=== PATIENT | female | born 1930 | race Caucasian/White ===

== ENCOUNTER 2016-06-06 13:19 | Inpatient (IN) | payer MEDICARE, OTHER ==
[~2016-06-06] VITALS: Ht 152.4 cm; Wt 88.1 kg
[2016-06-06 13:19] VITALS: BP 102/41; PULSE 34; RESP 14; O2SAT 100
[~2016-06-06 13:19] MED LIST: 0.9% Sodium Chloride 1,000 ML IV ONE; ACET500T95 PO; ADV250INH INH; ALBU18HF IH; ASC500 PO; CALC-686 PO; CARV12.5 PO; CHOL10002 PO; CIPR250T45 PO; CITA20TA PO; DOXY50CA2 PO; FURO-3 PO; GABA300C PO; METROGEL 1% TP; MULT-64 PO; MYCL PO; NITR1PAT64 TD; OMEP20TA86 PO; TIOT18CA IH; TRAVOS OD; VIB100 PO; ZOC20 PO; [UNRECOGNIZED DRUG - OTHER] PO
--- NOTE | 2016-06-06 13:21 | ED.REPORT ---
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 This morning the patient developed neck pain that radiated into both of her shoulders. She also noticed shortness of breath. She told medics that she had an episode of chest discomfort yesterday. Over the last few days the patient has noticed a cough and runny nose, these have improved. Medics called prior to arrival. They saw LBBB on EKG and wanted to know if this was chronic. While on the phone with me they said the patient went into a third degree AV block. Nursing Notes Stated Complaint: BRADYCARDIA Chief Complaint: Dysrhythmia/Cardiac Nursing Notes Reviewed: Yes Allergies: Coded Allergies: morphine (Verified Allergy, Intermediate, 06/06/16) pt becomes itchy and uncomfortable Penicillins (Verified Allergy, Unknown, 06/06/16) Sulfa (Sulfonamide Antibiotics) (Verified Allergy, Unknown, 06/06/16) codeine (Verified Allergy, Unknown, 06/06/16) meperidine (Verified Allergy, Unknown, 06/06/16) pt states that she becomes nauseous and vommits and her BP becomes labile with demerol aspirin (Verified Adverse Reaction, Unknown, has brain malformation, advised not to take ASA, 06/06/16) Scheduled ([metrOGEL 1%]) TP DAILY Apply by topical route every day to affected area(s) and rub in gently and completely Acetaminophen (Pain & Fever) 500 Mg Tablet 1,000 MG PO BIDP Ascorbic Acid-Expunged Drug, Do Not Renew! (Vitamin C-Expunged Drug, Do Not Renew!) 500 Mg Tablet 1,000 MG PO BID Bimatoprost (Lumigan) 45 Drop/2.5 Ml Ophsoln 45 DROP RIGHT_EYE HS Calcium Carbonate (Calcium) 600 Mg Tablet 600 MG PO BID Carvedilol-Expunged Drug, Do Not Renew! (Carvedilol-Expunged Drug, Do Not Renew! ) 12.5 Mg Tablet 12.5 MG PO BID TAKE WITH FOOD Citalopram-Expunged Drug, Do Not Renew! (Citalopram-Expunged Drug, Do Not Renew! ) 20 Mg Tablet 20 MG PO DAILY Furosemide-Expunged Drug, Do Not Renew! (Furosemide-Expunged Drug, Do Not Renew! ) 40 Mg Tablet 20 MG PO DAILY Gabapentin-Expunged Drug, Do Not Renew! (Neurontin-Expunged Drug, Do Not Renew! ) 300 Mg Capsule 300 MG PO QAM Gabapentin-Expunged Drug, Do Not Renew! (Neurontin-Expunged Drug, Do Not Renew! ) 300 Mg Capsule 600 MG PO QPM Magnesium Oxide (Magnesium) 500 Mg Capsule 500 MG PO HS Multivitamins-Expunged Drug, Do Not Renew! (Multivitamins-Expunged Drug, Do Not Renew!) 1 Each Tab.chew 1 EACH PO DAILYWM Nitroglycerin-Expunged Drug, Do Not Renew! (Nitroglycerin-Expunged Drug, Do Not Renew!) 1 Patch .24 H Patch.td24 0.2 MG TD DAILY REMOVE AT NIGHT FOR 10-12 HOURS Nystatin (Mycostatin Susp) 100,000 Unit/Ml Susp 500,000 UNIT PO QID Omeprazole-Expunged Drug, Do Not Renew! (Omeprazole-Expunged Drug, Do Not Renew! ) 20 Mg Tablet.dr 20 MG PO DAILYAC Simvastatin-Expunged Drug, Choose New Med! (Simvastatin-Expunged Drug, Choose New Med!) 20 Mg Tablet 20 MG PO HS Tiotropium Br-Expunged Drug, Do Not Renew! (Spiriva-Expunged Drug, Do Not Renew! ) 18 Mcg/Puff Pack 1 PUFF IH DAILY Vit C/Stefany AC/Lut/Copper/Znox (Preservision Lutein Softgel) 1 Each Capsule 1 EACH PO BID Scheduled PRN Albuterol Neb Soln (Albuterol Neb Soln) 2.5 Mg/3 Ml Vial.neb 2.5 MG INHALATION Q4H PRN PRN For Shortness of Breath Albuterol-Expunged Drug, Do Not Renew! (Albuterol-Expunged Drug, Do Not Renew!) 200 Puff/18 Gm Hfa.aer.ad 2 PUFF IH Q4-6HP PRN PRN General Time Seen by MD: 13:17 Chief Complaint Other (neck pain) Hx Obtained From: Patient, EMS Arrived By: Ambulance Sudden in Onset?: Yes Onset Occurred: 1 - 4 hours ago Symptom Duration: Since onset Location: : Neck Quality: Painful Radiation: : Shoulder left: Shoulder right Migration/Movement: Reports: None Severity: Current: Moderate Severity: Maximum: Severe Recent Healthcare: No recent hospitalization, Recent doctor visit Similar Sx Previous: No Past Medical History Past Medical History 1. Unstable angina 2. Congestive heart failure 3. History of UTIs 4. Paroxysmal atrial fibrillation 5. Cavernous hemangioma in the left middle cerebellar peduncle by MRI on July 16, 2010. 6. Asthma 7. History of complex partial seizures. 8. Diet controlled diabetes mellitus type 2. 9. Obstructive sleep apnea. 10. Chronic depression and anxiety 11. Hypertension 12. Glaucoma Past Surgical History Hysterectomy Cholecystectomy Total knee replacement. Family History Noncontributory Smoking History Never Smoker Social History Alcohol Use: Denies alcohol use Drug Use: Denies drug use Other Social History: Good social support, Lives alone, , Local resident Ambulatory Status Independent Review of Systems Respiratory: Reports: Non-productive cough, Shortness of breath Cardiovascular: Reports: Chest pain Musculoskeletal: Reports: Joint pain, Neck pain Complete sys rev & neg: except as marked. Allergy / Immune: Reports: Rhinorrhea Physical Exam Initial Vital Signs Vital Signs (First) Date Time Temp Pulse Resp B/P Pulse Ox O2 Delivery O2 Flow Rate FiO2 06/06/16 13:19 36.5 34 14 102/41 100 Nasal Cannula 6 Initial VS: Reviewed Head / Eyes: Atraumatic, Normocephalic, PERRL ENT: Mucous membranes moist, Conjunctiva normal, No scleral icterus Neck: Supple, Non-tender, Full range of motion Lymphatic: No lymphadenopathy Extremities: Vascular intact, Neuro intact, No swelling, No tenderness Skin: Warm, Dry, No cyanosis Neurologic: Alert, Oriented, Nonfocal Psychiatric: Mood/affect normal, Behavior normal, Normal thought content General/Constitutional: Awake, Alert, No acute distress, Well appearing, Cooperative Respiratory / Chest: Atraumatic, Breath sounds NL, Breath sounds = bilat, No respiratory distress, No rales, No rhonchi, No wheezing, No stridor, No chest tenderness Cardiovascular: Regular rhythm, Heart sounds NL, No murmurs, No rubs, Peripheral circulation NL, Pulses = bilaterally, No gross BP differential Heart Rate / Rhythm: Positive: Bradycardia Abdomen: Atraumatic, Soft, Non-tender, McBurney's non-tender, No guarding, No rebound, BS normoactive, No distention, No hernia, No palpable mass Interpretation & Diagnostics Lab Results Interpretation Result Diagram: 06/06/16 1326 06/06/16 1326 Test 06/06/16 13:26 White Blood Count 6.1th/mm3 (3.8-10.1) Red Blood Count 4.81mil/mm3 (3.90-5.20) Hemoglobin 14.7g/dL (12.0-15.6) Hematocrit 45.3% (35.0-46.0) Mean Corpuscular Volume 94.2fL (81-100) Mean Corpuscular Hemoglobin 30.6pg (27.0-35.0) Mean Corpuscular Hemoglobin Concent 32.5% (32.0-37.0) Red Cell Distribution Width 14.1% (12.3-15.4) Platelet Count 147bil/L (150-400) Neutrophils (%) (Auto) 50.9% (40-74) Lymphocytes (%) (Auto) 31.0% (14-46) Monocytes (%) (Auto) 15.4% (4-12) Eosinophils (%) (Auto) 2.0% (0-5) Basophils (%) (Auto) 0.5% (0-3) Prothrombin Time 11.4sec (8.1-12.5) Prothromb Time International Ratio 1.06ratio Activated Partial Thromboplast Time 28.0sec (22.8-33.0) Sodium Level 139mEq/L (134-144) Potassium Level 4.9mEq/L (3.5-5.2) Chloride Level 99mEq/L (97-108) Carbon Dioxide Level 25mmol/L (18-29) Blood Urea Nitrogen 22mg/dL (8-27) Creatinine 1.05mg/dL (0.57-1.00) Estimat Glomerular Filtration Rate 71mL/min (>59) Glucose Level 104mg/dL (60-99) Calcium Level 9.0mg/dL (8.5-10.1) Magnesium Level 2.5mg/dL (1.6-2.6) Total Bilirubin 0.6mg/dL (0.0-1.2) Aspartate Amino Transf (AST/SGOT) 31U/L (0-50) Alanine Aminotransferase (ALT/SGPT) 18U/L (0-32) Alkaline Phosphatase 64U/L (25-165) Total Creatine Kinase 48U/L (21-215) Creatine Kinase MB < 1.0ng/mL (0.0-5.3) Creatine Kinase MB % % (0.0-5.0) Troponin T < 0.010ug/L (0.0-0.011) Total Protein 7.1g/dL (6.4-8.4) Albumin 3.8g/dL (3.4-5.0) ECG Interpretation ECG Interpretation: Sinus bradycardia with a rate of 34 2:1 Mobitz Time: 13:31 Interpreted by: ED physician ECG Interpretation: 3rd degree block with a rate of 31 Time: 14:30 Interpreted by: ED physician X-Ray Chest Interpretation Chest Xray Interpretation: IMPRESSION: Mild cardiomegaly as before. No acute cardiopulmonary findings. Dictated by: Karly Owen M.D. on 06/06/2016 at 14:06 Interpretation / Wet Read by: Interpret - Radiologist Re-Eval/Medical Decision Med Decision/Clinical Course This patient is in intermittent Mobitz 2 and third-degree heart block. No obvious reversible cause is found. 5 mg of IV glucagon was given due to reported history of beta lizzie use and possibility of beta lizzie toxicity. Patient encounter began prior to arrival to the emergency department via telephone conversation with paramedics in order to look at this patient's past medical history and prior EKGs in order to best determine etiology of her symptoms. A stat medical team was called. Laboratory studies, vital signs, pacer pads, and IV fluids were initiated immediately. Patient required my immediate and undivided attention upon arrival. Luckily she has remained hemodynamically stable and asymptomatic at rest. Cardiology was emergently consulted and comes to the bedside in the ER. Patient will be admitted to intensive care. Source of Hx: Old records, EMS Summary of Info: ECHOCARDIOGRAM Interpretation Summary Sinus bradycardia; heart rate is 55-65 bpm. Normal LV size, wall thickness; there is global hypokinesis. EF is 35-40%. EPSS is 1.4 cm consistent with cardiomyopathy. There is mild-moderate aortic regurgitation in the setting of mildly dilated annulus and normal leaflets. Otherwise there are no significant valvular abnormalities. Normal chamber sizes. Mildly dilated ascending aorta (4.4 cm). Compared to prior study no changes have occurred. Reading Physician:11:30 AM Time of Eval: 13:50 Re-Evaluation/Progress Note: Rechecked the patient. Discussed plan for the in store banker to come and evaluate the patient. The patient is okay to have the electrical pads in place and transcutaneous pacing if needed. Time of Eval: 14:24 Re-Evaluation/Progress Note: Dr. Salcedo is here to evaluate the patient. Consultation #1: Referral / Consult Name: Judi Salcedo MD Consulted With: Cardiology Call Returned at: 13:48 Fly Fishing Guide: Will see patient, Agrees with eval, Agrees with plan Consultation #2: Referral / Consult Name: Kevin Brar MD Consulted With: Hospitalist Requested Call at: 14:12 Call Returned at: 14:46 Fly Fishing Guide: Will see patient, Agrees with eval, Agrees with plan, Accepts admit Counseled Regarding: Diagnosis, Lab results, Need for admission Discharge & Departure Primary Impression: Heart block AV third degree Additional Impression: Mobitz type II block Disposition: ADMITTED TO HOSPITAL Discharge Condition All VS Reviewed: Yes Condition: Stable Referrals: Samantha Oshea (PCP) Crit Care Except Billable Proc Time Spent: 30-74 minutes Services Performed: Patient management by me, Time spent at bedside, Reviewing test results, Reviewing imaging, Discussing patient care, Documentation in record, Time with fam/surrogate Critical Care Notes: See MDM Scribe Attestation Portions of this note were transcribed by Vijaya Delong. I, Dr. Jaime personally performed the history, physical exam and medical decision-making; I reviewed and confirmed the accuracy of the information in the transcribed note. Signed by: Emili Farfan, 06/06/2016 and [id number]. copies to: Samantha Oshea Timothy S DO Jun 06, 2016 13:21 Vijaya Delong Jun 06, 2016 13:31
[2016-06-06 13:30] LABS: BASOPHILS % (AUTO) 0.5 % (0-3); MONOCYTES % (AUTO) 15.4 % (4-12); Mean Corpuscular Hemoglobin 30.6 pg (27.0-35.0); Mean Corpuscular Volume 94.2 fL (81-100); NEUTROPHILS % (AUTO) 50.9 % (40-74); Platelet Count 147 bil/L (150-400)
[2016-06-06] MEDS ORDERED: Glucagon 1 mg/mL Inj IV ONE (13:35)
[2016-06-06 13:47] LABS: INR 1.06 ratio
[2016-06-06] MEDS ORDERED: GLUCAGON IV ONE (13:50)
[2016-06-06 13:51] VITALS: BP 148/42; PULSE 33; RESP 16; O2SAT 100
[2016-06-06 14:03] LABS: TROPONIN T < 0.010 ug/L (0.0-0.011)
[2016-06-06 14:07] LABS: Creatine Kinase 48 U/L (21-215); Magnesium 2.5 mg/dL (1.6-2.6)
--- NOTE | 2016-06-06 14:08 | DRSVH ---
PROCEDURE: X-RAY CHEST ONE VIEW, PORTABLE ([id number]) INDICATIONS: shoulder discomfort TECHNIQUE: One view of the chest was acquired. COMPARISON: [facility], , CHEST 1VW (PORTABLE), 07/16/2013, 11:14. FINDINGS: Surgical changes and devices: None. Lungs and pleura: No pleural effusions or pneumothorax. Lungs are clear. Mediastinum: Mediastinal contours appear normal. Heart size is mildly enlarged. Bones and chest wall: No suspicious bony lesions. Overlying soft tissues appear unremarkable. IMPRESSION: Mild cardiomegaly as before. No acute cardiopulmonary findings. Dictated by: Karly Owen M.D. on 06/06/2016 at 14:06 Approved by: Karly Owen M.D. on 06/06/2016 at 14:07
[2016-06-06] MEDS ORDERED: BIMA2.5D5 RIGHT_EYE (14:10)
[2016-06-06] MEDS ORDERED: CALC600T12 PO (14:10)
[2016-06-06] MEDS ORDERED: ALBU2.5V4 INHALATION (14:10)
[2016-06-06] MEDS ORDERED: MAGN500C4 PO (14:10)
[2016-06-06] MEDS ORDERED: VIT1CAPS27 PO (14:10)
[2016-06-06] MEDS ORDERED: Alum-Mag Hydrox-Simeth 30 mL Suspension PO PRN ×3 (14:50→16:45)
--- NOTE | 2016-06-06 15:10 | PCM.HPMED ---
Subjective Date of Service Jun 06, 2016 Primary Provider: Admitting Physician: Primary Care Physician: Samantha Oshea Attending Physician: Chief Complaint: malaise and neck pain HISTORY was OBTAINED FROM PATIENT-daughters / [facility] NOTES History of present illness 86-year-old female with malaise intermittently with shoulder/neck pain typically in the morning x few weeks typically associated w/ intermittent low HR per daughter, seen by pulmonolgist and PCP who likely did not capture the low HR, but stopped advair for malaise. 3 days ago runny nose w / URI symptoms. EMS called for ongoing shoulder/neck pain/malaise and noted her to be in third-degree AV block. pending director [employer] appointment in [place] on thursday -daughters made this appt due to malaise. malaise/shoulder/ neck pain get better as the day progresses/she eats and HR is no longer low. She is not on ACEI/ARB, w/ sCHF. She takes coreg and nitro patch w/ minimal CAD on last angio per notes here approx 2008. In the ER 1 L NS, glucagon 5, HR 30-40s, mobitzII/3rd degree heart block, known LBBB. Review of Systems - none of the following - F/C / wt change/ REAL / sob / cough / cp / acid reflux / n/v / bleeding/bruising / leg swelling / change in voiding / thrush / rash ambulates w/ cane due to recent URI, otherwise ambulates w/o cane FAMILY HX atrial fibrillation SOCIAL HX former smoker occasional EtOH MEDICATIONS Coreg metrOGEL 1%]) TP DAILY Apply by topical route every day to affected area(s) and rub in gently and completely Acetaminophen (Pain & Fever) 500 Mg Tablet 1,000 MG PO BIDP Ascorbic Acid-Expunged Drug, Do Not Renew! (Vitamin C-Expunged Drug, Do Not Renew!) 500 Mg Tablet 1,000 MG PO BID Bimatoprost (Lumigan) 45 Drop/2.5 Ml Ophsoln 45 DROP RIGHT_EYE HS Calcium Carbonate (Calcium) 600 Mg Tablet 600 MG PO BID Carvedilol-Expunged Drug, Do Not Renew! (Carvedilol-Expunged Drug, Do Not Renew! ) 12.5 Mg Tablet 12.5 MG PO BID TAKE WITH FOOD Citalopram-Expunged Drug, Do Not Renew! (Citalopram-Expunged Drug, Do Not Renew! ) 20 Mg Tablet 20 MG PO DAILY Furosemide-Expunged Drug, Do Not Renew! (Furosemide-Expunged Drug, Do Not Renew! ) 40 Mg Tablet 20 MG PO DAILY Gabapentin-Expunged Drug, Do Not Renew! (Neurontin-Expunged Drug, Do Not Renew! ) 300 Mg Capsule 300 MG PO QAM Gabapentin-Expunged Drug, Do Not Renew! (Neurontin-Expunged Drug, Do Not Renew! ) 300 Mg Capsule 600 MG PO QPM Magnesium Oxide (Magnesium) 500 Mg Capsule 500 MG PO HS Multivitamins-Expunged Drug, Do Not Renew! (Multivitamins-Expunged Drug, Do Not Renew!) 1 Each Tab.chew 1 EACH PO DAILYWM Nitroglycerin-Expunged Drug, Do Not Renew! (Nitroglycerin-Expunged Drug, Do Not Renew!) 1 Patch .24 H Patch.td24 0.2 MG TD DAILY REMOVE AT NIGHT FOR 10-12 HOURS Nystatin (Mycostatin Susp) 100,000 Unit/Ml Susp 500,000 UNIT PO QID - PRN Omeprazole-Expunged Drug, Do Not Renew! (Omeprazole-Expunged Drug, Do Not Renew! ) 20 Mg Tablet.dr 20 MG PO DAILYAC Simvastatin-Expunged Drug, Choose New Med! (Simvastatin-Expunged Drug, Choose New Med!) 20 Mg Tablet 20 MG PO HS Tiotropium Br-Expunged Drug, Do Not Renew! (Spiriva-Expunged Drug, Do Not Renew! ) 18 Mcg/Puff Pack 1 PUFF IH DAILY Vit C/Stefany AC/Lut/Copper/Znox (Preservision Lutein Softgel) 1 Each Capsule 1 EACH PO BID Scheduled PRN Albuterol Neb Soln (Albuterol Neb Soln) 2.5 Mg/3 Ml Vial.neb 2.5 MG INHALATION Q4H PRN PRN For Shortness of Breath Albuterol-Expunged Drug, Do Not Renew! (Albuterol-Expunged Drug, Do Not Renew!) 200 Puff/18 Gm Hfa.aer.ad 2 PUFF IH Q4-6HP PRN PRN Past Medical/Surgical HX Intracranial aneurysm/ cavernous hemangioma middle cerebellar peduncle MRI - contraindication for anticoagulation/asa/plavix distal LAD TX 2011 / sCHF 2013/hypertension/unstable angina Blood clot COPD/asthma GERD Diabetes diet controlled Recurrent UTIs Paroxysmal atrial fibrillation LBBB History of complex partial seizures. Diet controlled diabetes mellitus type 2. Obstructive sleep apnea. Does not use CPAP Chronic depression and anxiety Glaucoma Peritoneal dialysis is listed in the history section of I med Arthritis Diverticulitis Hysterectomy/cholecystectomy/knee replacement Allergies Coded Allergies: morphine (Verified Allergy, Intermediate, 06/06/16) pt becomes itchy and uncomfortable Penicillins (Verified Allergy, Unknown, 06/06/16) Sulfa (Sulfonamide Antibiotics) (Verified Allergy, Unknown, 06/06/16) codeine (Verified Allergy, Unknown, 06/06/16) meperidine (Verified Allergy, Unknown, 06/06/16) pt states that she becomes nauseous and vommits and her BP becomes labile with demerol aspirin (Verified Adverse Reaction, Unknown, has brain malformation, advised not to take ASA, 06/06/16) PMH Social History Hx Alcohol Use: Yes ("occasional") Hx Substance Use: No Hx Tobacco Use: Yes (quit 30 years ago. smoked for 20 years) Smoking Status: Never Smoker Exam Vital Signs Vital Sign - Last Date Time Temp Pulse Resp B/P Pulse Ox O2 Delivery O2 Flow Rate FiO2 06/06/16 13:51 33 16 148/42 100 Room Air 06/06/16 13:19 36.5 6 Lab and Diagnostics Labs Exam on admission 2L NC NAD A and O x 3 mood affect WNL, poor historian NC/AT no icterus no injected eyes EOMI PERRL /no pharyngeal lesions/ no oral lesions / hearing intact Supple neck CTAB equal chest rise / no accessory muscle use / speaks in full sentences / no rrw RRR S1 S2 / no mrg / 2+ radial pulses Soft nt nd + BS no hepatosplenomegaly No edema no cyanosis no ecchymosis of lower extremities No rash / no jaundice ROSALES CNII-XII grossly intact symmetrical No dysmetria of bilateral upper and lower limbs Strength grossly intact of bilateral upper and lower limbs Sensation grossly symmetrical of bilateral upper and lower limbs symmetrical facies EKG P waves regular, QRS 30 40s, PVCs alternates with SR Trop 0.01 BNP 2206 Creatinine 1.05 TSH 3.1 UA pending LFT normal INR 1.06 Imaging PROCEDURE: X-RAY CHEST ONE VIEW, PORTABLE ([id number]) INDICATIONS: shoulder discomfort TECHNIQUE: One view of the chest was acquired. COMPARISON: [facility], CR, CHEST 1VW (PORTABLE), 07/16/2013, 11:14. FINDINGS: Surgical changes and devices: None. Lungs and pleura: No pleural effusions or pneumothorax. Lungs are clear. Mediastinum: Mediastinal contours appear normal. Heart size is mildly enlarged. Bones and chest wall: No suspicious bony lesions. Overlying soft tissues appear unremarkable. IMPRESSION: Mild cardiomegaly as before. No acute cardiopulmonary findings. Echo 05/2016 Sinus bradycardia; heart rate is 55-65 bpm. Normal LV size, wall thickness; there is global hypokinesis. EF is 35-40%. EPSS is 1.4 cm consistent with cardiomyopathy. There is mild-moderate aortic regurgitation in the setting of mildly dilated annulus and normal leaflets. Otherwise there are no significant valvular abnormalities. Normal chamber sizes. Mildly dilated ascending aorta (4.4 cm). Compared to prior study no changes have occurred. Result Diagram: 06/06/16 1326 06/06/16 1326 Assessment & Plan Active issues and reason for admission 86 y f w/ neck/shoulder ache/malaise attributed to 3rd degree/mobitz2 block with history of distal LAD TX 2011 / sCHF since 2013 mild-mod AR EF 35-40% echo 2016 / hypertension / unstable angina --dc coreg. prn enalpralit. start enalapril trial tomorrow. continue home nitro/ lasix/K/Mg. monitor in ICU, re-eval by thursday for pacer consideration per Dr. Salcedo. --serial trop I --electrolytes monitor --normal TSH/elevated BNP - no comparison lung crackles/URI --wean O2 --pending respiratory PCR/sputum cx --scheduled albuterol, incentive spirometry --prn CPAP/BIPAP Malaise prior diverticulitis/UTIs, current diarrhea --pending stool PCR Chronic issues known prior to admission, present on admission Blood clot COPD/asthma GERD Recurrent UTIs Paroxysmal atrial fibrillation LBBB History of complex partial seizures. Diet controlled diabetes mellitus type 2. Obstructive sleep apnea. Does not use CPAP Chronic depression and anxiety Glaucoma Arthritis --resume home meds except vitamins/coreg Diet DM/cardiac/SSI DVT prophylaxis lscd ambulate, Intracranial aneurysm/cavernous hemangioma cerebellar penducle - contraindication for anticoagulation/asa/plavix Code DNR DNI Disposition inpt, f/u w/ her [place] director [employer] on thursday if discharged prior to then Assessment and plan were discussed with patient family. Kevin Brar MD Jun 06, 2016 15:10
[2016-06-06 15:17] VITALS: BP 154/41; PULSE 37; RESP 15; O2SAT 100
[2016-06-06] MEDS ORDERED: NITR1PAT59 TRANSDERM (15:37)
[2016-06-06] MEDS ORDERED: MULT1CAP33 PO (15:37)
[2016-06-06] MEDS ORDERED: GABA-502 PO ×2 (15:37)
[2016-06-06] MEDS ORDERED: ACET-171 PO (15:37)
[2016-06-06] MEDS ORDERED: CITA20TA11 PO (15:37)
[2016-06-06] MEDS ORDERED: TIOT18CA3 IH (15:37)
[2016-06-06] MEDS ORDERED: ALBU8.5H2 INHALATION (15:37)
[2016-06-06] MEDS ORDERED: CARV12.52 PO (15:37)
[2016-06-06] MEDS ORDERED: SIMV20TA4 PO (15:37)
[2016-06-06] MEDS ORDERED: NYST1000 PO (15:37)
[2016-06-06] MEDS ORDERED: ASCO100089 PO (15:37)
[2016-06-06] MEDS ORDERED: FURO40TA4 PO (15:37)
[2016-06-06] MEDS ORDERED: OMEP20CA11 PO (15:37)
[2016-06-06] MEDS ORDERED: Albuterol 2.5 mg/3 mL Inhalation Solution NEB PRN (15:40)
[2016-06-06 15:52] VITALS: BP 154/41; PULSE 37; RESP 15; O2SAT 100
[2016-06-06] MEDS ORDERED: Ondansetron 2 mg/mL 2 mL Inj IVPUSH PRN ×2 (16:00→16:15)
[2016-06-06] MEDS ORDERED: Glucose 40% Oral Gel 15 Gm Tube PO PRN (17:25)
--- NOTE | 2016-06-06 17:28 | NUR ---
Transfer Pt arrived from ED to CCU room #2016 at 1645. Pt placed on the monitor, HR 30's and feel symptomatic only with moving. 2L O2 nc at 96%. Alert but forgetful and needs simple commands. HH. Tearful about using bedpan. Family at bedside. NPO after midnight. Diabetic diet ordered for dinner.
[2016-06-06] MEDS: Insulin LISPRO 300 Unit/3 mL Inj SUBQ SCH ×2 (17:30→19:45)
[2016-06-06] MEDS: Pantoprazole 20 mg ER24 Tablet PO SCH (19:44)
[2016-06-06] MEDS: Albuterol 2.5 mg/3 mL Inhalation Solution NEB SCH (20:30)
[2016-06-06 20:35] VITALS: BP 150/42; PULSE 36; RESP 18; O2SAT 98
[2016-06-07] VITALS (8 sets, daily range): BP systolic 112–155; BP diastolic 34–87; PULSE 29–89; RESP 15–21; O2SAT 93–99
[2016-06-07 02:21] LABS: BASOPHILS % (AUTO) 0.3 % (0-3); EOSINOPHILS % (AUTO) 3.8 % (0-5); MONOCYTES % (AUTO) 13.8 % (4-12); Mean Corpuscular Hemoglobin 30.5 pg (27.0-35.0); Mean Corpuscular Volume 94.3 fL (81-100); NEUTROPHILS % (AUTO) 48.9 % (40-74); Platelet Count 138 bil/L (150-400)
[2016-06-07 03:12] LABS: Magnesium 2.3 mg/dL (1.6-2.6)
--- NOTE | 2016-06-07 06:12 | CONS ---
[address] [address] CONSULTATION REPORT PATIENT: ODILIA BOLTON : 1930 MR#: [id number] ADMIT: 06/06/2016 JOB ID: [id number] DATE OF SERVICE: 06/06/2016 CHIEF COMPLAINT: Dizziness. HISTORY OF PRESENT ILLNESS: The patient is a delightful 86-year-old woman with cardiomyopathy closely followed by Dr. Trinh. She and her family reports that in the past two weeks she had intermittent episodes of weakness and bradycardia with pulse in the 30s. 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 She was evaluated today in the emergency department for dizziness and was found to have complete heart block with left bundle branch block morphology escape complexes. Then she settled into this 2:1 block. She has not lost consciousness but she has been quite weak. We discussed pacemaker. Pt declined; her family declined as well; pt has DNR/DNI. PAST MEDICAL HISTORY: 1. Systolic heart failure. Ejection fraction of 35- 40%. 2. Distal LAD myocardial infarction in 2011, closely monitored by Dr. Trinh. 3. Emphysema. 4. Diabetes, diet controlled. 5. Paroxysmal AFib and left bundle branch block. 6. History of complex partial seizures. 7. Obstructive sleep apnea, does not use CPAP. 8. Peritoneal dialysis. 9. Intracranial aneurysm and cavernous hemangioma. Patient has a contraindication for anticoagulation. 10. Cardiac cath February 2009 showed mild irregularity in the proximal LAD and proximal RCA and was otherwise normal. FAMILY HISTORY: AFib. SOCIAL HISTORY: Former smoker. Occasional alcohol. REVIEW OF SYSTEMS: Significant for neck and shoulder pain, malaise. No shortness of breath, fevers, chills, weight change, headache, cough, acid reflux, nausea, vomiting, bleeding, bruising, leg swelling, change in voiding, thrush, rash. She walks around with a cane,otherwise has no limitations. Otherwise 10 point review of systems is negative. ALLERGIES: 1. MORPHINE. 2. PENICILLIN. 3. SULFA. 4. CODEINE. 5. ASPIRIN. She was advised not to take aspirin due to intracranial aneurysm/cavernous hemangioma noted on the MRI. HOME MEDICATIONS: Based on Dr. Trinh's notes: 1. Carvedilol 12.5 mg twice a day. 2. Citalopram 20 mg daily. 3. Lasix 20 mg daily. 4. Gabapentin 300 mg pills 2 tablets in the morning and 1 tablet at night. 5. Nitro patch 0.2 mg/hour. 6. Symbicort. 7. Spiriva. Exam on admission 2L NC WN WD woman NAD eyes: no icterus Supple neck CTAB equal chest rise RRR S1 S2 / no mrg / 2+ radial pulses Soft + BS no HSM No edema no cyanosis no ecchymosis of lower extremities No rashes or lesions neuro: grossly intact LABS: REVIEWED I reviewed the EKGs, there is an EKG showing complete heart block and wide QRS complex and there was an EKG showing 2:1 AV block with somewhat narrower QRS complexes. She is remarkably asymptomatic. Her troponin is negative. TSH is normal. Potassium is 4.9, magnesium is 2.5. ASSESSMENT AND PLAN: This is a delightful 86-year-old woman. She has complex past medical history including conduction system disease. Now comes in with symptomatic complete heart block and now 2:1 block. In an ideal world, she meets criteria for a beta lizzie and has class one indication for permanent pacemaker implant due to the fact that she needs that medication for her cardiomyopathy but also she has conduction system abnormalities as a result. However given her age and her code status, her family does not want to undergo pacemaker implant for that indication. So we talked about reversible causes for bradycardia and the fact that it is possible that carvedilol was contributing. Even though she really needs this medication, we can consider stopping it and evaluating whether her bradycardia resolved. If it resolves then great. If it fails to resolve then we have no way to fix her heart rate by adjusting her medications or electrolytes. If her rate fails to improve while holding off on beta lizzie, and there is no obvious reversible course and her symptoms are attributed to progressive conduction system disease, this can only be fixed via permanent pacemaker. We will revisit the subject in little bit more detail. In the interim family members do not want a pacemaker, so I did not put in a temporary wire and if she gets more bradycardic we can either transcutaneously pace her or give her dopamine. Atropine is also available but I think given wide QRS complex, may not be successful and really unremarkable likely for it, but we can attempt 1 mg IV if needed. Thank you for the opportunity to evaluate her. YOD
--- NOTE | 2016-06-07 06:17 | NUR ---
Tele/BP Up until ~0100 pt was in 2nd degree AVB Mobitz 2:1 with rate into 30s. Asymptomatic. VSS although somewhat hypertensive. At ~0100, pt tele switched from 2nd degree AVB to complete AVB rate 20s-30s. Remains asymptomatic besides baseline SOB (from asthma) with exertion and chronic back pain (reports from not being able to get comfortable in bed). Given 1 dose of ordered Vasotec for SBP >170. Pt has had diastolic BPs in 30s-50s. Does not tolerate activity well (severe SOB). Remains on bedrest and using bedpan. MD notified via page. No orders received. Care ongoing
[2016-06-07] MEDS: Insulin LISPRO 300 Unit/3 mL Inj SUBQ SCH ×4 (08:00→22:00)
[2016-06-07] MEDS: Tiotropium 18mcg/Cap 5 Capsule Inhaler Kit INHALATION SCH (08:30)
[2016-06-07] MEDS: Albuterol 2.5 mg/3 mL Inhalation Solution NEB SCH ×2 (08:33→20:23)
[2016-06-07] MEDS ORDERED: Heparin 5,000 Units/500 mL NS Premix IV ONE ×2 (10:09→17:33)
[2016-06-07] MEDS ORDERED: fentaNYL-PF 50 mCg/mL 2 mL Inj ONE ×2 (10:09→18:08)
[2016-06-07] MEDS ORDERED: 0.9% Sodium Chloride 1,000 ML ONE (10:28)
--- NOTE | 2016-06-07 10:45 | NUR ---
Continues in 3rd-degree heart block, BP stable. Mild-mod respiratory distress, anxious and restless, asking for legs over the rail; put in chair position with good effect. Skin pink/warm. Beef Cattle Grazier here this morning discussing temp pacer. Patient indicates that she thinks this will help, consent obtain, family7 updated. To laborer bituminous paving at 1020 for temporary pacemaker placement.
--- NOTE | 2016-06-07 11:52 | CS94 ---
[address] [address] DIAGNOSTIC CARDIAC CATHETERIZATION PATIENT: ODILIA BOLTON : 1930 MR#: [id number] ADMIT: 06/06/2016 JOB ID: [id number] SERVICE DATE: 06/07/2016 CHIEF COMPLAINT: Complete heart block. PROCEDURES PERFORMED: 1. Right common femoral vein vascular access under ultrasound. 2. Balloon tipped catheter placement into the right ventricle apex. METHOD: Following informed consent, with a 5-Mongolian, the right common femoral vein was accessed under ultrasound guidance. The sheath was placed. It was a little bit challenging because the vein is directly underneath the artery so we had to come at it from the side, but it was successful ultimately. At this juncture the balloon tipped catheter was advanced into the RV apex. Capture threshold was excellent at 0.25 milliamps. We still had capture at that rate. The patient had no complications. Thank you for the opportunity to evaluate her.
--- NOTE | 2016-06-07 13:07 | PROG NOTE ---
[address] [address] PROGRESS NOTE PATIENT: ODILIA BOLTON : 1930 MR#: [id number] ADMIT: 06/06/2016 JOB ID: [id number] DATE: 06/07/2016 SUBJECTIVE: This morning the patient underwent temporary pacemaker placement through the right common femoral vein. She did fine. She is feeling better. After the device placement she complained of a feeling of warmth all over her body and she says it actually feels good because she was feeling cold a lot. CURRENT MEDICATIONS: 1. Enalapril 5 mg daily. 2. Nitro patch. 3. Lipitor 10 mg daily. 4. Magnesium oxide 400 mg daily. 5. Spiriva. 6. Lasix 20 mg daily. OBJECTIVE: Vital signs: Heart rate currently 70 beats per minute. She is satting 99% on 3 L. Her blood pressure is 112/87. She is a very pleasant woman in no apparent distress. Eyes: No scleral icterus. Heart: Normal S1, S2. No murmurs. Lungs: Clear to auscultation anteriorly. Abdomen: Soft, positive bowel sounds. No hepatosplenomegaly. Right common femoral artery vascular access is clean, dry, and intact, and secured with a Tegaderm. LABORATORIES: Her labs were reviewed. Her hematocrit is normal. Her platelet count is stably reduced at 138. Creatinine is 0.7. Lipids are at goal. Total cholesterol 105, triglycerides 87, HDL 38, LDL 56. Troponin-T negative x2. ProBNP is elevated at 2606. TSH is normal. Echocardiogram most recently obtained May 27, 2016 showed EF 35%-40%. EPSS 1.4. Mild to moderate aortic regurgitation in the setting of dilated annulus. No significant valvular abnormalities. Mildly dilated aorta. ASSESSMENT AND PLAN: An 86-year-old woman with complete heart block and old left bundle branch block in the setting of Coreg 12.5 mg twice a day. Otherwise, no reversible cause has been identified. I recommend for this patient to be monitored with a temporary pacemaker and if the heart rate improves on its own that would be wonderful, but if it does not she would meet criteria for permanent pacemaker implant. I had a family meeting with her son-in-law, daughter, and multiple grandchildren, and they voiced understanding. Thank you very much for the opportunity to evaluate her.
--- NOTE | 2016-06-07 14:24 | PCM.PNMED ---
Subjective Date of Service Jun 07, 2016 Subjective Some rhinorrhea and a dry cough. Some shortness of breath but no chest pain or palpitations. No abdominal pain nausea vomiting or diarrhea. Exam Vital Signs Vital Sign - Last Date Time Temp Pulse Resp B/P Pulse Ox O2 Delivery O2 Flow Rate FiO2 06/07/16 12:00 71 20 112/87 99 Nasal Cannula 3.00 06/07/16 08:00 36.9 Intake and Output 06/06/16 06/06/16 06/07/16 Cumulative From/Thru 15:00 23:00 07:00 06/06/16 13:19 - 06/07/16 05:30 Intake Total 1500 ml 250 ml 1750 ml Output Total 250 ml 250 ml Balance 1500 ml 0 ml 1500 ml Intake Oral 250 ml 250 ml IV Total 1500 ml 1500 ml Output Urine Total 250 ml 250 ml # Voids 2 2 # Bowel Movements 2 2 Exam Peau d'orange 3, fluent speech Anicteric sclera. Neck supple. Lungs clear, no wheezing or focal findings. Heart is regular without murmur. Abdomen is soft. Extremities are free of edema. Right femoral vein as a transducer catheter in place. IVs and Medications Medications Reviewed: Medications were reviewed in detail Lab and Diagnostics Result Diagram: 06/07/1619906/07/16199 Assessment & Plan 1. Third-degree AV block. POA. A transvenous pacemaker was placed today. We will hold Coreg. She fails to improve she will likely receive her permanent pacemaker on Thursday. 2. URI, POA. Positive ochoa virus PCR. Supportive care 3. DVT, POA. 4. Chronic asthma, POA. This appears to be compensated. Usual medications 5. CAD with history of [place] LAD distribution. POA. Usual medications except hold beta lizzie pending improvement of her third-degree AV block 6. Chronic systolic heart failure, EF of 35-40%. POA. Usual medications except beta lizzie 7. Paroxysmal atrial fibrillation, POA. 8. DM 2, POA. This is diet controlled. Every before meals at bedtime Accu- Cheks with proximal was probed. DVT prophylaxis lscd ambulate, Intracranial aneurysm/cavernous hemangioma cerebellar penducle - contraindication for anticoagulation/asa/plavix Code DNR DNI Disposition inpt, f/u w/ her Tad housing case manager on thursday if discharged prior to then Assessment and plan were discussed with patient family. Pain Evaluation: Adequate Pain Control VTE Mechanical Devices: Intermittant Pneumatic CD Resuscitation Status: DNR/DNI:Do Not Resuscitate/Intubate Time spent 30 minute Ryan Washington MD Jun 07, 2016 14:24
--- NOTE | 2016-06-07 15:34 | NUR ---
Social work note - Initial assessment Terri Mcmillan is a 86 yr old admitted for heart block. EMR reviewed: Pt has Medicare and AP insurance. Her PCP is Samantha RECINOS. HERMELINDAOA paperwork in EMR. See attached CM initial assessment. MANAGER MEDIA RELATIONS met with pt - Introduced D/C planning and explained SW role. Pt is alert, oriented. She lives by herself in [place]. She is independent at baseline, uses a cane, has access to a walker. She states that her daughter lives a few houses away and is able to drive her to appointments. She anticipates going home at d/c with no needs identified. MANAGER MEDIA RELATIONS offered home health, pt declined at this time stating that she feels much better already. Pt is to have pacemaker placed on Thursday. Plan: Home with family providing transportation. ADONIS Keith Addendum: 06/07/16 at 1539 by ESTUARDO CEJA SS Amended: Links added.
[2016-06-07] MEDS ORDERED: DOPamine 800 mg/250 mL D5W Premix IV ONE (16:56)
[2016-06-07] MEDS ORDERED: Atropine 1 mg/10 mL (Code) Syringe ONE (16:57)
[2016-06-07] MEDS: Ondansetron 2 mg/mL 2 mL Inj IVPUSH PRN ×2 (17:25→19:00)
--- NOTE | 2016-06-07 17:27 | DRSVH ---
PROCEDURE: X-RAY CHEST ONE VIEW, PORTABLE ([id number]) INDICATIONS: Mobitz type II heart block. TECHNIQUE: One view of the chest was acquired. COMPARISON: [facility], CR, XR CHEST 1VW (PORTABLE), 06/06/2016, 13:27. FINDINGS: Surgical changes and devices: Transcutaneous pacer noted. Lungs and pleura: No pleural effusions or pneumothorax. Lungs are clear. Mediastinum: Mediastinal contours appear normal. Heart size is enlarged. Bones and chest wall: No suspicious bony lesions. Overlying soft tissues appear unremarkable. IMPRESSION: No acute cardiopulmonary disease process. Dictated by: Batool Christensen MD, PhD on 06/07/2016 at 17:24 Approved by: Batool Christensen MD, PhD on 06/07/2016 at 17:26
--- NOTE | 2016-06-07 18:10 | NUR ---
From petroleum laboratory technician at 1125 with temporary pacer via right groin access, V-paced at 70-71. BP stable, painfree, feeling much better, in good spirits. Loss of capture late this afternoon, MD notifed and at bedside, unable to reposition/regain capture; rhythm 3rd degree AV block. Compliant with bedrest, minimal repositioning assisted by staff. Atropine and Dopamine given per MD with no improvement in heart rate. Back to pathology laboratory aide at 1755 for replacement of temp pacer, most likely right IJ access per MD. Family updated by MD. Voided 1250, urine mixed with stool. Appetite poor, but has denied nausea until this evening. Zofran given with good effect.
[2016-06-07] MEDS ORDERED: Vancomycin Inj 1,000 MG in IV Premix 1 EACH IV ONE (18:45)
[2016-06-07] MEDS: Pantoprazole 20 mg ER24 Tablet PO SCH (20:28)
[2016-06-08] VITALS (9 sets, daily range): BP systolic 90–121; BP diastolic 57–69; PULSE 81–84; RESP 20–27; O2SAT 94–98
--- NOTE | 2016-06-08 03:39 | NUR ---
Pacer, VS as noted. Returned from laborer yard 1900 after pacer placement with temp pacer settings of rate 80, Ma 2 and asyncronous. Tele Vpaced with rate of 80. PT alert and oriented. Salazar cath placed for strict bedrest with return of clear uop. Sats on 2l/nc high 90s. Right groin site stable with lines secure. 2029 Tele vpaced with intrinsic ventricular beats. Pacer changed to syncronous with improved sensing. 0400 Report given to Lesly Moffett RN.
[2016-06-08] MEDS: Insulin LISPRO 300 Unit/3 mL Inj SUBQ SCH ×4 (08:00→22:00)
[2016-06-08] MEDS: Albuterol 2.5 mg/3 mL Inhalation Solution NEB SCH ×2 (08:30→21:05)
--- NOTE | 2016-06-08 15:44 | NUR ---
Pacer Transvenous pacemaker site without complications. Dressing c/d/i. Lines secures. No oozing, pain or sign of hematoma at groin site. Pulses intact. Pacer remains in syncronous mode at rate of 80, Ma 2 and sensitivity 3. V-paced in the 80s per yard brakeman. Vital signs stable. Patient alert and oriented. Denies pain. Oxygen saturation maintained > 92% on room air. Will continue to monitor.
--- NOTE | 2016-06-08 16:16 | CONS ---
[address] [address] CONSULTATION REPORT PATIENT: ODILIA BOLTON : 1930 MR#: [id number] ADMIT: 06/06/2016 JOB ID: [id number] DATE OF SERVICE: 06/08/2016 REFERRING PHYSICIAN: Judi Salcedo. OTHER PHYSICIANS: 1. Dr Oshea. 2. Dr Trinh, Cardiology, [facility] CHIEF COMPLAINT: Weakness, lightheadedness. HISTORY OF PRESENT ILLNESS: The patient is an 86-year-old woman with a history of cardiomyopathy with moderate left ventricular dysfunction, who experienced increased weakness with a slow pulse and was admitted with a finding of complete heart block and bradycardia. She has been followed for cardiomyopathy since 2007, known to have left bundle-branch block, with moderate to moderately severe left ventricular dysfunction, with previous and current echocardiogram showing ejection fraction of 35% to 40%. She denies any recent syncopal episodes but has felt momentarily lightheaded. She had been aware of increased fatigue and weakness for at least six weeks. She has not experienced any typical anginal or exertional symptoms. She does feel short of breath with moderate exertion, more so in the last month. She has been treated for chronic obstructive pulmonary disease in the past. She was a smoker but quit over 30 years ago. She is not on any anticoagulation. She has not been aware of any prior arrhythmia. She has had surgery with a knee replacement with no problems related to that. She states she was hospitalized for pneumonia a couple of years ago. She has history of sleep apnea but has declined any CPAP therapy for this. She has expressed a desire for no aggressive interventions or resuscitation but is agreeable with the temporary and permanent pacemaker. She enjoys a good quality of life, living independently with some assistance from family who were present during the interview. Her past history, family history, social history, previous medications and allergies are reviewed and discussed with the patient and are unchanged from Dr. Salcedo's consultation of June 06, 2016. REVIEW OF SYSTEMS: A 12 point review of systems is as above. General: She denies any chills or fever. She is on droplet isolation for URI but has not had any fever or myalgias. Respiratory: See HPI. Cardiac: See HPI. Neurologic: History of partial seizures, history of cavernous hemangioma, no CVA. GI: Denies ulcer disease or bleeding. : Prior hysterectomy, prior bladder surgery. Denies incontinence. Musculoskeletal: DJD of knees, status post right knee replacement, occasionally uses a cane. Hematologic: Denies bruising or bleeding, no history of anemia or transfusions. Endocrine: History of diabetes. No thyroid disorder. Psychiatric: Denies depression, . Family present during interview. EXAMINATION: Cardiovascular examination shows a pleasant, elderly woman, lying comfortably in bed. She has a temporary external pacer via the right femoral vein which is functioning normally currently. Blood pressure is 110/70. Pulse is 60 and paced. No conjunctival pallor or icterus. No facial asymmetry. No carotid bruit. There is no thyromegaly. Chest is resonant to percussion anteriorly. Heart rhythm is regular, no murmurs, gallops, or rubs are appreciated. Abdomen is obese and nontender. There are no bruits. There is dressing in the right femoral area. There is a scar over the right knee. There is no peripheral edema. Neurologic is grossly intact. She is alert, oriented and appropriate. EKG at presentation showed complete heart block with ventricular escape rhythm. Previous EKG has shown left bundle-branch block. Current EKG show or right bundle branch and left anterior fascicular block pattern alternating with left bundle-branch block pattern. Chest x-ray does not show any effusions or infiltrates. Labs are reviewed: CBC, BMP and PT are within normal limits. IMPRESSION: 1. Complete heart block, symptomatic, irreversible. The patient clearly has an indication for permanent pacing based on her symptomatic complete heart block and bradycardia. This is reviewed with her and her family. The procedure of permanent pacemaker implantation, potential complications, risks, and alternatives are discussed. 2. Cardiomyopathy, by history, has been nonischemic. Medical therapy is being titrated on this hospitalization and will be followed after discharge. 3. Moderate to moderately severe left ventricular dysfunction, ejection fraction of 35% to 40% with dyssynchrony by echocardiogram consistent with left bundle-branch block. 4. Left bundle-branch block, possibly alternating with right bundle-branch block. 5. History of chronic obstructive pulmonary disease. 6. History of diabetes, diet controlled. 7. History of sleep apnea. PLAN: I discussed the procedure of permanent pacemaker with the patient and her family. She does not wish aggressive management but is agreeable to permanent pacemaker placement. There is no indication for biventricular device based on her ejection fraction. This was a prolonged consultation with review of her records and discussion with the patient and her family, 90 minutes spent in direct patient care. NIC
--- NOTE | 2016-06-08 16:57 | PCM.PNMED ---
Subjective Date of Service Jun 08, 2016 Subjective She is doing well today. No distress. No chest pain cough or shortness of breath. She denies any dominant or pain. No nausea or vomiting. No headache. Exam Vital Signs Vital Sign - Last Date Time Temp Pulse Resp B/P Pulse Ox O2 Delivery O2 Flow Rate FiO2 06/08/16 11:20 Supplement Oxygen 06/08/16 11:19 36.6 81 22 110/65 96 2.00 Intake and Output 06/07/16 06/07/16 06/08/16 Cumulative From/Thru 15:00 23:00 07:00 06/06/16 13:19 - 06/08/16 06:00 Intake Total 510 ml 2260 ml Output Total 1250 ml 550 ml 2050 ml Balance -740 ml -550 ml 210 ml Intake Oral 480 ml 730 ml IV Total 30 ml 1530 ml Output Urine Total 550 ml 800 ml Urine/Stool Mix 1250 ml 1250 ml # Voids 2 # Bowel Movements 3 5 Exam Alert oriented 3. No distress. Fluent speech. Lungs are clear with normal effort and rate heart is regular without murmur Abdomen soft. Extremities extremities are free of edema. IVs and Medications Medications Reviewed: Medications were reviewed in detail Lab and Diagnostics Result Diagram: 06/07/16 0200 06/08/16 0255 Assessment & Plan 1. Third-degree AV block. POA. A transvenous pacemaker was placed today. We will hold Coreg. She fails to improve she will likely receive her permanent pacemaker on Thursday. 2. URI, POA. Positive ochoa virus PCR. Supportive care, she is improving 3. DVT, POA. No change to management 4. Chronic asthma, POA. This appears to be compensated. Usual medications 5. CAD with history of [place] LAD distribution. POA. Usual medications except hold beta lizzie pending improvement of her third-degree AV block 6. Chronic systolic heart failure, EF of 35-40%. POA. Usual medications except beta lizzie 7. Paroxysmal atrial fibrillation, POA. 8. DM 2, POA. This is diet controlled. Every before meals at bedtime Accu- Cheks with proximal was probed. DVT prophylaxis lscd ambulate, Intracranial aneurysm/cavernous hemangioma cerebellar penducle - contraindication for anticoagulation/asa/plavix Code DNR DNI Probable discharged Thursday of pacemaker implantation happens on Thursday. Pain Evaluation: Adequate Pain Control VTE Mechanical Devices: Intermittant Pneumatic CD Resuscitation Status: DNR/DNI:Do Not Resuscitate/Intubate Time spent 25 minute Ryan Washnigton MD Jun 08, 2016 16:57
[2016-06-08] MEDS: Pantoprazole 20 mg ER24 Tablet PO SCH (20:59)
[2016-06-08] MEDS: Tiotropium 18mcg/Cap 5 Capsule Inhaler Kit INHALATION SCH (22:31)
[2016-06-09] VITALS (22 sets, daily range): BP systolic 117–160; BP diastolic 62–82; PULSE 66–82; RESP 17–28; O2SAT 95–100
[2016-06-09] MEDS ORDERED: Vancomycin Inj 1,000 MG in IV Premix 1 EACH IV ONE (06:00)
[2016-06-09] MEDS ORDERED: 0.9% Sodium Chloride 1,000 ML IV PRN (06:00)
--- NOTE | 2016-06-09 06:25 | NUR ---
Cardiac Patient's transvenous pacemaker site is c/d/i, pedal pulses palpable. Patient given hibiclins bath and second IV site is started. Patient had increased PVCs and unpaced beats early in the morning. MD notified and orders received to change the pacemaker settings to a mA of 5 and asynchronous mode. mV remains at 3. Telemetry improves after these changes. VSS.
[2016-06-09] MEDS: Insulin LISPRO 300 Unit/3 mL Inj SUBQ SCH ×4 (08:00→23:01)
[2016-06-09] MEDS: Albuterol 2.5 mg/3 mL Inhalation Solution NEB SCH ×2 (08:01→21:55)
[2016-06-09] MEDS: Tiotropium 18mcg/Cap 5 Capsule Inhaler Kit INHALATION SCH (08:21)
--- NOTE | 2016-06-09 12:22 | PCM.PNMED ---
Subjective Date of Service Jun 09, 2016 Subjective She is doing well. No chest pain or dyspnea. No nausea vomiting diarrhea or abdominal pain. Her right groin is fine where the sheath is in for her transvenous catheter. Exam Vital Signs Vital Sign - Last Date Time Temp Pulse Resp B/P Pulse Ox O2 Delivery O2 Flow Rate FiO2 06/09/16 08:01 81 28 97 Room Air 06/09/16 08:00 36.3 148/82 2.00 Intake and Output 06/08/16 06/08/16 06/09/16 Cumulative From/Thru 15:00 23:00 07:00 06/06/16 13:19 - 06/09/16 06:20 Intake Total 850 ml 200 ml 3310 ml Output Total 650 ml 750 ml 3450 ml Balance 200 ml -550 ml -140 ml Intake Oral 850 ml 200 ml 1780 ml IV Total 1530 ml Output Urine Total 650 ml 750 ml 2200 ml Urine/Stool Mix 1250 ml # Voids 2 # Bowel Movements 5 Exam Alert oriented 3 no distress. Fluent speech. Neck is supple Lungs are clear with normal effort. Heart is regular without murmur Abdomen is soft nontender. Extremities are free of edema with good pedal pulses. IVs and Medications Medications Reviewed: Medications were reviewed in detail Lab and Diagnostics Result Diagram: 06/07/16 0200 06/09/16 0305 Assessment & Plan 1. Third-degree AV block. POA. A transvenous pacemaker was placed today. Permanent pacemaker implantation this afternoon per cardiology. 2. URI, POA. Positive ochoa virus PCR. Supportive care, she is improving 3. DVT, POA. No change to management 4. Chronic asthma, POA. This appears to be compensated. Usual medications 5. CAD with history of [place] LAD distribution. POA. Usual medications except hold beta lizzie pending improvement of her third-degree AV block 6. Chronic systolic heart failure, EF of 35-40%. POA. Usual medications except beta lizzie 7. Paroxysmal atrial fibrillation, POA. 8. DM 2, POA. This is diet controlled. Every before meals at bedtime Accu- Cheks with proximal was probed. 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
[2016-06-09] MEDS ORDERED: 0.9% Sodium Chloride 250 ML ONE (12:59)
[2016-06-09] MEDS ORDERED: Heparin 5,000 Units/500 mL NS Premix IV ONE (12:59)
[2016-06-09] MEDS ORDERED: Bupivacaine-MPF 0.5% 30 mL Inj ONE (12:59)
[2016-06-09] MEDS ORDERED: 0.9% Sodium Chloride 1,000 ML ONE (12:59)
[2016-06-09] MEDS ORDERED: Vancomycin 1,000 mg Inj ONE (13:02)
--- NOTE | 2016-06-09 13:04 | NUR ---
100% paced rhythm, temp pacer in place. Feeling well, sleeping intermittently. Denies discomfort, no SOB or distress. Supportive family at bedside. NS @ TKO, 2 peripheral IV sites flushed/patent, NPO since 0600. Vancomycin IV piggyback sent to laborer airport maintenance with patient for staff to infuse. To slab polisher for permanent pacemaker at 1300.
[2016-06-09] MEDS ORDERED: fentaNYL-PF 50 mCg/mL 2 mL Inj ONE (13:25)
--- NOTE | 2016-06-09 15:44 | DRSVH ---
PROCEDURE: X-RAY CHEST ONE VIEW, PORTABLE ([id number]) INDICATIONS: For new leads placed TECHNIQUE: One view of the chest was acquired. COMPARISON: [facility], CR, XR CHEST 1VW (PORTABLE), 06/07/2016, 16:58. FINDINGS: Surgical changes and devices: Placement of dual chamber left cardiac pacer in expected position. Lungs and pleura: No pleural effusions or pneumothorax. Lungs are clear. Mediastinum: Mediastinal contours appear normal. Heart size is slightly prominent. Bones and chest wall: No suspicious bony lesions. Overlying soft tissues appear unremarkable. IMPRESSION: No immediate complications status post cardiac pacemaker placement. Dictated by: Josef De La Torre Zeenat Interpreted: Abby Bentley MD on 06/09/2016 at 15:43 Transcribed by: LOR on 06/09/2016 at 15:44 Approved by: Abby Bentley M.D. on 06/09/2016 at 17:28
--- NOTE | 2016-06-09 16:24 | NUR ---
Received Received from farm labor contractor about 1520. Dressing to LCW c/d/i. EKG done. CXR done. Ice pack and sling applied. farm labor contractor personal in to pull sheath. Right groin without bleeding or hematoma. Taking po well. Denies pain. VSS. Continue to monitor per orders.
--- NOTE | 2016-06-09 17:49 | NUR ---
Transfer VSS. Denies pain. No change in groin or dressings. Report called to Yuridia Marsh RN. Transported to 2027 with family at 1740 in no distress.
--- NOTE | 2016-06-09 18:16 | NUR ---
Received from [facility] pt alert and oriented. denies pain. dsg cdi, sling in place. telemetry placed. family at bedside.
[2016-06-09] MEDS: 0.9% Sodium Chloride 1,000 ML IV SCH ×2 (18:20→20:29)
--- NOTE | 2016-06-09 20:24 | DI95 ---
[place] [id number] INTERVENTIONAL CARDIAC CATHETERIZATION PATIENT: ODILIA BOLTON : 1930 MR#: [id number] ADMIT: 06/06/2016 JOB ID: [id number] DATE: 06/09/2016 REFERRING PHYSICIAN: Dr. Salcedo, Dr. Oshea INDICATION: Complete heart block. POSTOPERATIVE DIAGNOSIS: Complete heart block. PROCEDURE: DDDR pacer placement, conscious sedation, axillary venography. DEVICE: Pacemaker: [employer] model NK0718, serial #[id number]. Ventricular lead: [employer] model 2088 TC/52, serial #[id number]. Atrial lead: [employer] model 2088TC/46, serial #[id number]. DESCRIPTION: The patient was brought to the cardiac catheterization lab from CCU in fasting condition. She had a previously placed temporary transvenous pacemaker via her right femoral vein. Her right chest was prepped and draped in a sterile fashion. She received conscious sedation per protocol. The left infraclavicular area was infiltrated with a mixture of 1% lidocaine and 0.5% Marcaine as local anesthetic. Using landmarks initially for fluoroscopic guidance, attempted entry of a guidewire into the extrathoracic subclavian vein was unsuccessful. An axillary venogram was then performed with the injection of 10 cc of Omnipaque via brachial vein and used as a road map. With this, using the Seldinger technique, two separate wires were placed in the subclavian vein without difficulty. The pacer pocket was then created with sharp and blunt dissection and electrocautery. The guidewires were tunneled into the pocket and two 6-Luxembourgish sheaths were inserted. The wires and introducers were removed. A vancomycin-soaked sponge was placed in the pocket. The ventricular lead was then inserted and manipulated to the RV apex where stable positioning was obtained. The active fixation pin was advanced. Thresholds were tested. Paced R-wave sensing was greater than 12 V. Lead impedance was 600 ohms. Capture threshold was 0.5 V at a pulse width 0.4 msec. There was no diaphragmatic stimulation with 10 V pacing. The atrial lead was then manipulated over a J-wire. The final location was somewhat lateral but appeared to be in the appendage. P-wave sensing was 2.1 mV, lead impedance 530 ohms. Capture threshold 1 V at a pulse width of 0.4 msec.There was no diaphragmatic stimulation with 10 V pacing. Both peel-away sheaths were then removed and stable positioning confirmed fluoroscopically and with threshold testing. The Vancomycin-soaked sponge was removed from the pocket. The leads were secured with 0 Ethibond over the plastic sleeve. The leads were connected to the pacemaker. The pocket was flushed with a vancomycin solution. The pacemaker was placed in the pocket and secured with 0 Ethibond. The subcutaneous tissues were then closed with two rows of 2-0 Polysorb. The subcuticular tissues were closed with 4-0 Polysorb. The wound was covered with Steri-Strips and a Bioclusive dressing. The temporary pacer was then removed with fluoroscopic monitoring. The patient was transferred to [facility] in stable condition. Follow-up x-rays, EKGs and telemetry monitoring will be performed. She will receive antibiotic prophylaxis with vancomycin. Followup will be arranged in the Arrhythmia Clinic. NIC
[2016-06-09] MEDS: Pantoprazole 20 mg ER24 Tablet PO SCH (21:35)
[2016-06-10] VITALS (9 sets, daily range): BP systolic 121–169; BP diastolic 63–80; PULSE 66–82; RESP 16–24; O2SAT 93–99
[2016-06-10] MEDS ORDERED: Vancomycin Inj 1,000 MG in IV Premix 1 EACH IV ONE (03:10)
[2016-06-10 03:47] LABS: APPEARANCE,URINE CLEAR (CLEAR,HAZY); COLOR,URINE DARK YELLOW (YELLOW); OCCULT BLOOD,URINE MODERATE (NEGATIVE)
[2016-06-10 03:48] LABS: UROBILINOGEN,URINE NORMAL (NORMAL)
--- NOTE | 2016-06-10 05:02 | NUR ---
pacer site/pain pts pacer dsg c/d/i, pt with some pain 12/11 tylenol 975mg PO and ice placed over site helping with pain control. pt was on bedrest till 2144 but not wanting to get out of bed, did sit at side of bed and roll on side. tele 100% v-paced.
--- NOTE | 2016-06-10 06:51 | NUR ---
chest x-ray pt up for the first time to wheel chair and down to chest x-ray.
[2016-06-10] MEDS: Insulin LISPRO 300 Unit/3 mL Inj SUBQ SCH ×4 (08:00→21:06)
[2016-06-10] MEDS: Tiotropium 18mcg/Cap 5 Capsule Inhaler Kit INHALATION SCH (08:25)
[2016-06-10] MEDS: Albuterol 2.5 mg/3 mL Inhalation Solution NEB SCH ×2 (08:30→20:53)
--- NOTE | 2016-06-10 09:59 | DRSVH ---
PROCEDURE: X-RAY CHEST, TWO VIEWS ([id number]) INDICATIONS: For new lead placement TECHNIQUE: 2 views of the chest were acquired. COMPARISON: [facility], , CHEST 2VW, 07/15/2010, 19:03. FINDINGS: Surgical changes and devices: Stable position of left dual chamber cardiac pacemaker. Lungs and pleura: No pleural effusions or pneumothorax. Lungs are clear. Mediastinum: Mediastinal contours are normal. Heart size is normal. Bones and chest wall: No suspicious bony abnormalities. Soft tissues appear unremarkable. IMPRESSION: Stable chest post pacer placement. Dictated by: Josef De La Torre [facility] Interpreted: Abby Bentley MD on 06/10/2016 at 9:58 Transcribed by: LOR on 06/10/2016 at 9:58 Approved by: Abby Bentley M.D. on 06/10/2016 at 19:10
[2016-06-10] MEDS: 0.9% Sodium Chloride 1,000 ML IV SCH ×2 (11:06→20:53)
--- NOTE | 2016-06-10 12:39 | NUR ---
Evaluation completed. Please go to "Notes" then click on "Assessments and Notes" (bottom left corner of screen). Then select appropriate discipline tab on top of screen.
--- NOTE | 2016-06-10 12:54 | NUR ---
Label Cutter Continued discharge planning Data & Assesment: finish repair worker met with patient at bedside to discuss discharge planning. Patient's son-in-law was also present. Patient's PT recommended SNF and patient states that she was in agreement with being referred to a SNF. Patient requested [facility] because she has been to the facility before. SW gave [facility] access and faxed face sheet. SW will continue to follow patient for discharge planning needs. Plan: Patient will discharge to [facility] if accepted.SW will continue to follow. Shilpa Adams LMSW, ACM
--- NOTE | 2016-06-10 13:41 | PCM.PNMED ---
Subjective Date of Service Jun 10, 2016 Subjective She feels generally fine. She is somewhat forgetful and also somewhat weak. She has pain. There is some left-sided anterior chest pain where her pacemaker was implanted. No arm or leg pain. No bowel pain nausea or diarrhea. Exam Vital Signs Vital Sign - Last Date Time Temp Pulse Resp B/P Pulse Ox O2 Delivery O2 Flow Rate FiO2 06/10/16 11:37 36.6 77 20 122/72 93 Room Air 06/10/16 04:07 2.00 Intake and Output 06/09/16 06/09/16 06/10/16 Cumulative From/Thru 15:00 23:00 07:00 06/06/16 13:19 - 06/10/16 06:34 Intake Total 500 ml 1811 ml 5621 ml Output Total 1600 ml 300 ml 5350 ml Balance -1100 ml 1511 ml 271 ml Intake Oral 500 ml 960 ml 3240 ml IV Total 851 ml 2381 ml Output Urine Total 1600 ml 300 ml 4100 ml Urine/Stool Mix 1250 ml # Voids 2 # Bowel Movements 5 Exam She is awake and appears comfortable. She has fluent speech Anicteric sclerae. Neck supple. Lungs are clear with normal effort and rate. Heart is regular without murmur Abdomen is soft nontender. Extremities are free of edema History of rash or lesions. Pacemaker site is tender but there is no evidence of hematoma or redness. IVs and Medications Medications Reviewed: Medications were reviewed in detail Lab and Diagnostics Result Diagram: 06/07/16 0200 06/09/16 0305 Assessment & Plan 1. Third-degree AV block. POA. A transvenous pacemaker was placed today. Permanent pacemaker implantation yesterday. She is doing well. 2. URI, POA. Positive ochoa virus PCR. Supportive care, she is improving, however she remains very weak. 3. Remote DVT. No change to management 4. Chronic asthma, POA. This appears to be compensated. Usual medications, stable and no changes. 5. CAD with history of [place] LAD distribution. POA. Usual medications except hold beta lizzie pending improvement of her third-degree AV block 6. Chronic systolic heart failure, EF of 35-40%. POA. Usual medications, carvedilol as reintroduced after pacemaker at 12.5 mg twice a day. 7. Paroxysmal atrial fibrillation, POA. 8. DM 2, POA. This is diet controlled. Every before meals at bedtime Accu- Cheks AC, HS Discharge planning. Unfortunately the patient did poorly with physical therapy appears to need some rehabilitation at a retirement facility. Today we discover this and we are trying to find placement in a retirement facility Thursday later today or tomorrow depending on when we have available bed. 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
--- NOTE | 2016-06-10 15:40 | NUR ---
Social Work: Continued Discharge Planning Data and Assessment: Operations General Agent notified patient and patient's family that [facility] called and reported that they do not have any beds available. Patient and patient's family requested that patient be referred to [facility]. [facility] stated that they are able to accept the patient, but the patient's daughter will visit the facility tonight and notify the Operations General Agent if they want the patient transferred to [facility] or not. SW will continue to follow. Plan: Patient is likely to discharge to [facility]. SW will continue to follow. Shilpa Adams LMSW, ACM
--- NOTE | 2016-06-10 18:27 | NUR ---
Hancock Pt's hancock catheter D/C'd at ~0830 this am after discussing with MD and order placed. Pt voided ~2 hours after removal and denied any issues with voiding for remainder of shift.
--- NOTE | 2016-06-10 18:51 | NUR ---
Cough Pt just had persistent coughing spell which rendered Pt SOB, SPO2 sat 96% when checked on RA, Pt recovered over several minutes.
[2016-06-10] MEDS: Pantoprazole 20 mg ER24 Tablet PO SCH (20:50)
[2016-06-11] VITALS: BP 137/65; PULSE 71; RESP 20; O2SAT 96
[2016-06-11] MEDS ORDERED: diphenhydrAMINE 25 mg Capsule PO ONE (00:10)
[2016-06-11 03:44] VITALS: BP 127/65; PULSE 69; RESP 20; O2SAT 95
[2016-06-11] MEDS: 0.9% Sodium Chloride 1,000 ML IV SCH (06:18)
--- NOTE | 2016-06-11 06:20 | NUR ---
pain/activity pt c/o left shoulder/chest pain from pacer incision, 975mg PO tylenol and ice packs helping with pain, at the start of shift pt up to bathroom with 1pa and getting SOB, on RA SpO2 90-93% needing a neb treatment, but later in the shift pt up to bathroom with 1pa pt denied SOB and SpO2 on RA remained mid 90s, tele V-Paced rate 70s
[2016-06-11 07:46] VITALS: PULSE 74; RESP 16; O2SAT 96
[2016-06-11] MEDS: Albuterol 2.5 mg/3 mL Inhalation Solution NEB SCH (07:46)
[2016-06-11] MEDS: Insulin LISPRO 300 Unit/3 mL Inj SUBQ SCH ×2 (08:00→12:00)
--- NOTE | 2016-06-11 09:09 | NUR ---
Spoke with Michelle at [facility] and let her know pending discharge for today and we would like 1300 transport will call her back once final orders are in so she can call for transport. Updated STATION ATTENDANT
[2016-06-11 09:49] VITALS: BP 123/63; PULSE 70; RESP 14; O2SAT 92
[2016-06-11] MEDS: Tiotropium 18mcg/Cap 5 Capsule Inhaler Kit INHALATION SCH (10:37)
[2016-06-11 10:59] VITALS: PULSE 76
--- NOTE | 2016-06-11 12:00 | PCM.DIMED ---
Discharge Instructions Date of Service Jun 11, 2016 Dates of Hospitalization Jun 06, 2016 at 15:14 Discharge Diagnosis Discharge Diagnosis Third-degree AV block with pacemaker placement URI secondary to positive coronavirus Remote DVT Chronic asthma Coronary artery disease Chronic systolic heart failure Paroxysmal atrial fibrillation Diet Heart Healthy, Diabetic Activity Other (activity as tolerated, gradually returned to your baseline daily activities) Call your provider Fever or Chills, Shortness of breath, Bleeding, Chest pain Patient Instructions Follow-up plan The patient should follow-up in the arrhythmia clinic as she recently had a pacemaker placed. Please call the arrhythmia clinic for follow-up appointment. Follow-up Provider: Samantha Oshea Follow-up with PCP in: 1 week (if an appointment has not already been made please call to schedule an appointment) Follow-up in: 1 week (please call the arrhythmia clinic for follow-up appointment) Bell Drew DO Jun 11, 2016 12:00
[2016-06-11] MEDS ORDERED: ENAL5TAB PO (12:02)
[2016-06-11 12:19] VITALS: BP 122/68; PULSE 66; RESP 16; O2SAT 96
--- NOTE | 2016-06-11 12:19 | PCM.DC.MED ---
Discharge Summary Date of Service Jun 11, 2016 Dates of Hospitalization Date of Hospital Admission Jun 06, 2016 at 15:14 Date of Discharge: Jun 11, 2016 Providers: Admitting Physician: Kevin Brar MD Primary Care Physician: Samantha Oshea Attending Physician: Kevin Brar MD Diagnosis at Time of Discharge Diagnosis at Time of Discharge Third-degree AV block with pacemaker placement URI secondary to positive coronavirus Remote DVT Chronic asthma Coronary artery disease Chronic systolic heart failure Paroxysmal atrial fibrillation Consultations Interventional cardiology for pacemaker placement Procedures Invasive Procedures DATE: 06/09/2016 REFERRING PHYSICIAN: Dr. Dayo Michelle INDICATION: Complete heart block. POSTOPERATIVE DIAGNOSIS: Complete heart block. PROCEDURE: DDDR pacer placement, conscious sedation, axillary venography. DEVICE: Pacemaker: [employer] model US8479, serial #[id number]. Ventricular lead: [employer] model 2088 TC/52, serial #[id number]. Atrial lead: [employer] model 2088TC/46, serial #[id number]. DESCRIPTION: The patient was brought to the cardiac catheterization lab from CCU in fasting condition. She had a previously placed temporary transvenous pacemaker via her right femoral vein. Her right chest was prepped and draped in a sterile fashion. She received conscious sedation per protocol. The left infraclavicular area was infiltrated with a mixture of 1% lidocaine and 0.5% Marcaine as local anesthetic. Using landmarks initially for fluoroscopic guidance, attempted entry of a guidewire into the extrathoracic subclavian vein was unsuccessful. An axillary venogram was then performed with the injection of 10 cc of Omnipaque via brachial vein and used as a road map. With this, using the Seldinger technique, two separate wires were placed in the subclavian vein without difficulty. The pacer pocket was then created with sharp and blunt dissection and electrocautery. The guidewires were tunneled into the pocket and two 6-Burmese sheaths were inserted. The wires and introducers were removed. A vancomycin-soaked sponge was placed in the pocket. The ventricular lead was then inserted and manipulated to the RV apex where stable positioning was obtained. The active fixation pin was advanced. Thresholds were tested. Paced R-wave sensing was greater than 12 V. Lead impedance was 600 ohms. Capture threshold was 0.5 V at a pulse width 0.4 msec. There was no diaphragmatic stimulation with 10 V pacing. The atrial lead was then manipulated over a J-wire. The final location was somewhat lateral but appeared to be in the appendage. P-wave sensing was 2.1 mV, lead impedance 530 ohms. Capture threshold 1 V at a pulse width of 0.4 msec.There was no diaphragmatic stimulation with 10 V pacing. Both peel-away sheaths were then removed and stable positioning confirmed fluoroscopically and with threshold testing. The Vancomycin-soaked sponge was removed from the pocket. The leads were secured with 0 Ethibond over the plastic sleeve. The leads were connected to the pacemaker. The pocket was flushed with a vancomycin solution. The pacemaker was placed in the pocket and secured with 0 Ethibond. The subcutaneous tissues were then closed with two rows of 2-0 Polysorb. The subcuticular tissues were closed with 4-0 Polysorb. The wound was covered with Steri-Strips and a Bioclusive dressing. The temporary pacer was then removed with fluoroscopic monitoring. The patient was transferred to [facility] in stable condition. Follow-up x-rays, EKGs and telemetry monitoring will be performed. She will receive antibiotic prophylaxis with vancomycin. Followup will be arranged in the Arrhythmia Clinic. Jake Cardenas MD 06/09/16 1527 Other Diagnostics Cardiac cath SERVICE DATE: 06/07/2016 CHIEF COMPLAINT: Complete heart block. PROCEDURES PERFORMED: 1. Right common femoral vein vascular access under ultrasound. 2. Balloon tipped catheter placement into the right ventricle apex. METHOD: Following informed consent, with a 5-Burmese, the right common femoral vein was accessed under ultrasound guidance. The sheath was placed. It was a little bit challenging because the vein is directly underneath the artery so we had to come at it from the side, but it was successful ultimately. At this juncture the balloon tipped catheter was advanced into the RV apex. Capture threshold was excellent at 0.25 milliamps. We still had capture at that rate. The patient had no complications. Thank you for the opportunity to evaluate her. Judi Salcedo MD 06/07/16 2793 Report status: Draft Brief History 86-year-old female with malaise intermittently with shoulder/neck pain typically in the morning x few weeks typically associated w/ intermittent low HR per daughter, seen by pulmonolgist and PCP who likely did not capture the low HR, but stopped advair for malaise. 3 days ago runny nose w/ URI symptoms. EMS called for ongoing shoulder/neck pain/malaise and noted her to be in third- degree AV block. pending computer publisher appointment in [place] on thursday - daughters made this appt due to malaise. malaise/shoulder/neck pain get better as the day progresses/she eats and HR is no longer low. Hospital Course Patient presented to the emergency room and was found to be in third-degree AV block. The patient had a cardiac cath which showed complete heart block. The patient on 06/09/2016 was then taken to the OR and had a pacemaker placed. Patient seems to be doing well and should follow up in the arrhythmia clinic. The patient also had a URI will present secondary to ochoa virus. Patient was treated with supportive care. Patient has remained stable and afebrile throughout the duration of her stay. Patient is being sent to a [facility] facility as she has been having difficulty walking. Physical therapy has assessed her and stated that she would benefit from a [facility] facility rehabilitation stay. Patient is being discharged in stable condition. Exam Vital Signs (Last) Date Time Temp Pulse Resp B/P Pulse Ox O2 Delivery O2 Flow Rate FiO2 06/11/16 10:59 76 06/11/16 09:49 36.5 14 123/63 92 Room Air 06/10/16 04:07 2.00 Exam Physical Exam: GEN: Patient was awake,responding appropriately to questions HEENT: PERRLA, EOMI, Neck soft supple, trachea midline, nomocephalic/atraumatic CV: +S1/S2, RRR, no murmurs auscultated, pacemaker in place incision site with sutures and Steri-Strips in place is clean dry and intact no signs of irritation or infection. Respiratory: CTAB, no wheezes, rales, rhonchi GI: +bowel sounds x4, soft, compressible, non TTP EXT: no c/c/e Neuro: CN II-XII grossly intact Psych: mood and affect were appropriate Test 06/06/16 13:26 06/06/16 19:05 06/07/16 02:00 06/09/16 03:05 Prothrombin Time 11.4sec (8.1-12.5) Prothromb Time International Ratio 1.06ratio Activated Partial Thromboplast Time 28.0sec (22.8-33.0) Total Bilirubin 0.6mg/dL (0.0-1.2) Aspartate Amino Transf (AST/SGOT) 31U/L (0-50) Alanine Aminotransferase (ALT/SGPT) 18U/L (0-32) Alkaline Phosphatase 64U/L (25-165) Total Creatine Kinase 48U/L (21-215) Creatine Kinase MB < 1.0ng/mL (0.0-5.3) Creatine Kinase MB % % (0.0-5.0) Pro-B-Type Natriuretic Peptide 2606pg/mL (0-738) Total Protein 7.1g/dL (6.4-8.4) Albumin 3.8g/dL (3.4-5.0) Thyroid Stimulating Hormone (TSH) 3.180uIU/mL (0.450-4.500) Hemoglobin A1c 5.5% (4.8-5.6) Troponin T < 0.010ug/L (0.0-0.011) White Blood Count 5.9th/mm3 (3.8-10.1) Red Blood Count 4.20mil/mm3 (3.90-5.20) Hemoglobin 12.8g/dL (12.0-15.6) Hematocrit 39.6% (35.0-46.0) Mean Corpuscular Volume 94.3fL (81-100) Mean Corpuscular Hemoglobin 30.5pg (27.0-35.0) Mean Corpuscular Hemoglobin Concent 32.3% (32.0-37.0) Red Cell Distribution Width 13.8% (12.3-15.4) Platelet Count 138bil/L (150-400) Neutrophils (%) (Auto) 48.9% (40-74) Lymphocytes (%) (Auto) 33.0% (14-46) Monocytes (%) (Auto) 13.8% (4-12) Eosinophils (%) (Auto) 3.8% (0-5) Basophils (%) (Auto) 0.3% (0-3) Magnesium Level 2.3mg/dL (1.6-2.6) Triglycerides Level 87mg/dL (0-149) Cholesterol Level 105mg/dL (100-199) LDL Cholesterol, Calculated 49.600mg/dL (0-99) VLDL Cholesterol 17.400mg/dL HDL Cholesterol 38mg/dL (>39) Cholesterol/HDL Ratio 2.76 (0.0-4.4) Sodium Level 141mEq/L (134-144) Potassium Level 4.3mEq/L (3.5-5.2) Chloride Level 103mEq/L (97-108) Carbon Dioxide Level 27mmol/L (18-29) Blood Urea Nitrogen 17mg/dL (8-27) Creatinine 0.65mg/dL (0.57-1.00) Estimat Glomerular Filtration Rate 123mL/min (>59) Glucose Level 102mg/dL (60-99) Calcium Level 8.3mg/dL (8.5-10.1) Test 06/10/16 01:00 Urine Color Dark yellow (YELLOW) Urine Appearance Clear (CLEAR,HAZY) Urine pH 6.0 (5.0-8.0) Urine Specific [place] 1.020 (1.003-1.035) Urine Protein Negativemg/dL (NEG,TRACE) Urine Glucose (UA) Negativemg/dL (NEGATIVE) Urine Ketones Negativemg/dL (NEGATIVE) Urine Occult Blood Moderate (NEGATIVE) Urine Nitrite Negative (NEGATIVE) Urine Bilirubin Negative (NEGATIVE) Urine Urobilinogen Normalmg/dL (NORMAL) Urine Leukocyte Esterase Negative (NEGATIVE) Urine RBC 11-50/hpf (0-2) Urine WBC 0-5/hpf (0-5) Urine Epithelial Cells Occasional/hpf (NONE-MOD) Urine Crystals None seen (NONE SEEN) Urine Bacteria None/hpf (NONE-FEW) Urine Hyaline Casts None/lpf (NONE) Urine Granular Casts None seen (NONE SEEN) Urine Waxy Casts None seen (NONE SEEN) Urine Red Blood Cell Casts None seen (NONE SEEN) Urine White Blood Cell Casts None seen (NONE SEEN) Urine Mucus None seen (None Seen) Urine Trichomonas None seen (NONE SEEN) Urine Yeast None (NONE SEEN) Urine Culture Reflexed Not indicated Hold Urine Received (Received) Microbiology Results Microbiology ADENOVIRUS RESPIRATORY PCR Final 06/07/16 Not Detected CORONOVIRUS 229E Final 02/04/17-1142 Organism 1 CORONAVIRUS 229E CORONOVIRUS 229E DETECTED TIME CALLED: 1141 DATE CALLED: 06/07/16 FLOOR/DOCTOR: [facility] [employer] CALLED BY: WILL CORONOVIRUS HKU1 Final 06/07/16-1141 Not Detected CORONOVIRUS NL63 Final 06/07/16-1141 Not Detected CORONOVIRUS OC43 Final 06/07/16-1141 Not Detected INFLUENZA A PCR Final 06/07/16-1141 Not Detected INFLUENZA B PCR Final 06/07/16-1141 Not Detected METAPNEUMOVIRUS PCR Final 06/07/16-1141 Not Detected RHINOVIRUS OR ENTEROVIRUS PCR Final 06/07/16-1141 Not Detected PARAINFLUENZA 1 PCR Final 06/07/16-1141 Not Detected Discharge Medications Discharge Medications ([metrOGEL 1%]) TP DAILY (Reported) Apply by topical route every day to affected area(s) and rub in gently and completely Acetaminophen (Acetaminophen) 500 Mg Tablet 1,000 MG PO BID (Reported) Albuterol HFA (Proair HFA) 8.5 Gm Hfa.aer.ad 2 PUFFS INHALATION Q4H (Reported) Ascorbic Acid (Vitamin C) 1,000 Mg Tab.chew 1,000 MG PO BID (Reported) Bimatoprost (Lumigan) 45 Drop/2.5 Ml Ophsoln 45 DROP RIGHT_EYE HS (Reported) Calcium Carbonate (Calcium) 600 Mg Tablet 600 MG PO BID (Reported) Carvedilol (Carvedilol) 12.5 Mg Tablet 12.5 MG PO BID (Reported) Citalopram (Citalopram) 20 Mg Tablet 20 MG PO DAILY (Reported) Enalapril Maleate (Enalapril Maleate) 5 Mg Tablet 5 MG PO BID Prescribed by: VANIA CORDOVA DO Furosemide (Furosemide) 40 Mg Tablet 20 MG PO DAILY (Reported) Gabapentin (Gabapentin) 300 Mg Capsule 300 MG PO DAILY (Reported) Gabapentin (Gabapentin) 300 Mg Capsule 600 MG PO QPM (Reported) Magnesium Oxide (Magnesium) 500 Mg Capsule 500 MG PO HS (Reported) Multivitamin (Multivitamins) 1 Each Capsule 1 EACH PO DAILY (Reported) Nitroglycerin 0.2 mg/hr Patch (Nitroglycerin 0.2 mg/hr Patch) 1 Each Patch 1 PATCH TRANSDERM DAILY (Reported) Nystatin (Nystatin) 100,000 Unit/1 Ml Oral.susp 500,000 UNIT PO QID (Reported) Omeprazole (Omeprazole) 20 Mg Capsule.dr 20 MG PO DAILY (Reported) Simvastatin (Simvastatin) 20 Mg Tablet 20 MG PO HS (Reported) Tiotropium [place] (Spiriva) 18 Mcg Cap.w.dev 1 PUFF IH DAILY (Reported) Vit C/[place] AC/Lut/Copper/Znox (Preservision Lutein Softgel) 1 Each Capsule 1 EACH PO BID (Reported) As needed Albuterol Neb Soln (Albuterol Neb Soln) 2.5 Mg/3 Ml Vial.neb 2.5 MG INHALATION Q4H PRN PRN For Shortness of Breath (Reported) Followup Plan Disposition: Discharged to [facility] facility in stable condition Follow-up plan The patient should follow-up in the arrhythmia clinic as she recently had a pacemaker placed. Please call the arrhythmia clinic for follow-up appointment. Discharge Diet: Heart Healthy, Diabetic Discharge Activity: Other (activity as tolerated, gradually returned to your baseline daily activities) Follow-up Provider: Samantha Oshea Follow-up with PCP in: 1 week (if an appointment has not already been made please call to schedule an appointment) Follow-up in: 1 week (please call the arrhythmia clinic for follow-up appointment) Time spent Greater than 35 minutes copies to: Samantha Oshea Precious L DO Jun 11, 2016 12:19
--- NOTE | 2016-06-11 14:21 | NUR ---
Discharge Pt discharged to [facility] at ~1315 after giving report to receiving RN Isabella at [facility]. Pt's IV access D/C'd and intact. Pt's family at bedside to follow Pt to [facility]. Pt A&Ox3, VSS on RA.
--- NOTE | 2016-07-09 13:28 | CS94 ---
[address] [id number] DIAGNOSTIC CARDIAC CATHETERIZATION PATIENT: ODILIA BOLTON : 1930 MR#: [id number] ADMIT: 06/06/2016 JOB ID: [id number] SERVICE DATE: 07/09/2016 PROCEDURE PERFORMED: temporary ppm implant after initial ppm lead stopped capturing. Following informed consent the temporary wire was withdrawn from the sheath. At this point in time, a balloon-tipped catheter was placed at the right ventricular apex. Capture threshold was outstanding. Capture threshold was actually 0.2 milliamps. No complications in cintia-procedural period. MTDD
== END 2016-06-11 13:15 | DRG 243 ==
LOC: SED 13:19 → CCU 15:14 → PCC 06-09 14:29
PROVIDERS: ADMIT Urology; ATTEND Urology
PROC: 0JH606Z Insertion of Pacemaker, Dual Chamber into Chest Subcutaneous Tissue and Fascia, Open Approach (ICD-10-PCS; principal; 2016-06-09)
PROC: 02H63JZ Insertion of Pacemaker Lead into Right Atrium, Percutaneous Approach (ICD-10-PCS; 2016-06-09)
PROC: 02HK3JZ Insertion of Pacemaker Lead into Right Ventricle, Percutaneous Approach (ICD-10-PCS; 2016-06-09)
DX: I44.2 Atrioventricular block, complete (principal); I25.110 Atherosclerotic heart disease of native coronary artery with unstable angina pectoris; I50.22 Chronic systolic (congestive) heart failure; I42.9 Cardiomyopathy, unspecified; I48.0 Paroxysmal atrial fibrillation; E11.9 Type 2 diabetes mellitus without complications; I10 Essential (primary) hypertension; K21.9 Gastro-esophageal reflux disease without esophagitis; F32.9 Major depressive disorder, single episode, unspecified; F41.9 Anxiety disorder, unspecified; Z87.440 Personal history of urinary (tract) infections; J06.9 Acute upper respiratory infection, unspecified; B97.29 Other coronavirus as the cause of diseases classified elsewhere; J45.909 Unspecified asthma, uncomplicated